=== PATIENT | female | born 1980 | race Caucasian/White ===

== ENCOUNTER 2020-04-27 01:07 | Emergency (ER) | payer SELFPAY ==
[~2020-04-27] VITALS: Ht 157.5 cm; Wt 68.0 kg
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
[2020-04-27] MEDS ORDERED: BACITRACIN ZINC TOPICAL OINT PACKET. TP ONE (01:39)
[2020-04-27] MEDS ORDERED: IV RINGERS SOLUTION,LACTATED 1,000 ML IV SCH (02:00)
[2020-04-27] MEDS ORDERED: MUPIROCIN 2% TOPICAL OINTMENT 22GM TUBE. TP ONE (02:00)
[2020-04-27] MEDS ORDERED: MORPHINE SULFATE 10 MG/ML SYRINGE. SQ ONE (02:00)
[2020-04-27] MEDS ORDERED: CONTRAST GIVEN. MC PRN (02:15)
[2020-04-27] MEDS ORDERED: IOHEXOL 300 MG/ML 75 ML VIAL. IV ONE (02:30)
[2020-04-27 03:33] LABS: BASO % 1 % (0-3); EOS # 0.2 x10^3/uL (0.0-0.7); EOS % 3 % (0-3); HEMATOCRIT 35.9 % (36.0-47.0); LYMPH # 2.1 x10^3/uL (1.0-4.8); LYMPH % 26 % (24-48); MEAN CORPUSCULAR HEMOGLOBIN 30 pg (25-35); MEAN CORPUSCULAR HGB CONC 33 g/dL (31-37); MEAN CORPUSCULAR VOLUME 91 fL (79-100); MONO # 0.7 x10^3/uL (0.0-1.1); MONO % 9 % (0-9); NEUT # 5.1 x10^3uL (1.8-7.7); NEUT % 63 % (31-73); PLATELET COUNT 289 x10^3/uL (140-400); RED BLOOD COUNT 3.96 x10^6/uL (3.50-5.40); RED CELL DISTRIBUTION WIDTH 13.7 % (11.5-14.5)
[2020-04-27 03:41] LABS: CALCIUM 9.3 mg/dL (8.5-10.1); CREATININE 0.8 mg/dL (0.6-1.0); GFR 80.7; POTASSIUM 3.7 mmol/L (3.5-5.1)
[2020-04-27 03:46] LABS: ALBUMIN 3.3 g/dL (3.4-5.0); DIRECT BILIRUBIN 0.1 mg/dL (0.0-0.2); MAGNESIUM 2.1 mg/dL (1.8-2.4); TOTAL BILIRUBIN 0.3 mg/dL (0.2-1.0); TOTAL PROTEIN 6.9 g/dL (6.4-8.2)
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
[2020-04-27 04:24] LABS: BILIRUBIN,URINE NEG (NEG); CLARITY,URINE CLOUDY; COLOR,URINE AMBER; GLUCOSE,URINE NEG (NEG)
[2020-04-27 04:25] LABS: BACTERIA,URINE 0 /HPF (0-FEW); NITRITE,URINE NEG (NEG); SQUAMOUS EPITHELIAL CELL,UR MOD /LPF; UROBILINOGEN,URINE 0.2 mg/dL (0.2 mg/dL); WBC,URINE 20-40 /HPF (0-4)
[2020-04-27 04:27] LABS: BARBITURATES NEG (NEG); BENZODIAZEPINES NEG (NEG); CANNABINOIDS POS (NEG); COCAINE NEG (NEG); METHADONE NEG (NEG); OPIATES POS (NEG); PHENCYCLIDINE NEG (NEG)
[2020-04-27 04:28] LABS: AMPHETAMINE/METHAMPHETAMINE POS (NEG)
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
[2020-04-27] MEDS ORDERED: CYCL-331 PO (05:01)
[2020-04-27] MEDS ORDERED: CEPH-264 PO (05:01)
[2020-04-27] MEDS ORDERED: HYDR-1179 PO (05:01)
[2020-04-27] MEDS: KETOROLAC 60 MG/2 ML VIAL. IM ONE ×2 (05:12→05:22)
[2020-04-27 05:24] VITALS: BP 141/89
[2020-04-27] MEDS ORDERED: CEPHALEXIN 250 MG CAPSULE PO ONE (05:30)
[2020-04-27] MEDS ORDERED: ORPHENADRINE CITRATE 60 MG/2 ML VIAL. IM ONE (05:30)
--- NOTE | 2020-04-27 07:45 | EKG ---
[address] [address] Test Date: 2020-04-27 Test Time: 01:47:19 Pat Name: SUE YADAV Department: Room: Gender: F [employer]: : 1980 Requested By: MT PORTER Order Number: [id number] Reading MD: Measurements Intervals [place] Rate: 76 P: 53 OR: 142 QRS: 36 QRSD: 82 T: 30 QT: 382 QTc: 434 Interpretive Statements SINUS RHYTHM NORMAL ECG RI6.02 No previous ECG available for comparison
== END 2020-04-27 05:39 | disposition home or self-care (01) ==
LOC: ER 01:07
DX: S00.93XA Contusion of unspecified part of head, initial encounter (principal); S50.02XA Contusion of left elbow, initial encounter; S70.12XA Contusion of left thigh, initial encounter; S70.11XA Contusion of right thigh, initial encounter; S90.32XA Contusion of left foot, initial encounter; V89.2XXA Person injured in unspecified motor-vehicle accident, traffic, initial encounter; Y93.89 Activity, other specified; Y92.89 Other specified places as the place of occurrence of the external cause; Y99.8 Other external cause status
CPT/HCPCS: 36415; 70450; 71046; 71250; 72125; 73060; 73080; 73630; 74176; 80048; 80076; 80307; 81001; 81025; 82150; 82550; 83690; 83735; 84484; 85025; 87086; 93005; 96372; 99285; J2270; J2360; J1885

== ENCOUNTER 2021-02-01 07:14 | Emergency (ER) | payer SELFPAY ==
[~2021-02-01] VITALS: Ht 157.5 cm; Wt 73.0 kg
[~2021-02-01 07:14] MED LIST: CEPH-264 PO; CYCL-331 PO; HYDR-1179 PO
--- NOTE | 2021-02-01 07:59 | PHYS DOC ---
Past History Past Medical History: No Pertinent History Additional Past Medical Histor: endocarditis, IV drug use Past Surgical History: No Surgical History Alcohol Use: Rarely General Adult EDM: Chief Complaint: MULTIPLE COMPLAINTS HPI: HPI: 40-year-old female presents with multiple complaints. The patient tells me "I was doing cotton's last night and it did not work out. I feel like I am going to ." The patient is an IV heroin user. She did not have her usual heroin so she did something called Cisneros which is some kind of heroin derivative. She has a headache, she is jittery, she feels like she has chest and abdominal pain. She is not vaccinated for COVID-19. Review of Systems: Review of Systems: Constitutional: Restless. Denies fever or chills Eyes: Denies change in visual acuity HENT: Denies nasal congestion or sore throat Respiratory: Denies cough or shortness of breath Cardiovascular: Chest pain GI: Denies abdominal pain, nausea, vomiting, bloody stools or diarrhea : Denies dysuria Musculoskeletal: Denies back pain or joint pain Integument: Denies rash Neurologic: Headache. Denies focal weakness or sensory changes Endocrine: Denies polyuria or polydipsia Lymphatic: Denies swollen glands Psychiatric: Anxiety Current Medications: Current Meds: Current Medications Medications (Trade) Dose Ordered Sig/Raj Start Time Stop Time Status Last Admin Dose Admin Diphenhydramine HCl (Benadryl) 50 mg 1X ONCE 02/01/21 08:00 02/01/21 08:01 UNV Ketorolac Tromethamine (Toradol 30mg Vial) 30 mg 1X ONCE 02/01/21 08:00 02/01/21 08:01 UNV Metoclopramide HCl (Reglan Vial) 10 mg 1X ONCE 02/01/21 08:00 02/01/21 08:01 UNV Sodium Chloride 1,000 ml @ 1,000 mls/hr 1X ONCE 02/01/21 08:00 02/01/21 08:59 UNV Allergies: Allergies: Allergies Coded Allergies Type Severity Reaction Last Updated Verified No Known Drug Allergies 04/27/20 No Physical Exam: PE: Constitutional: Well developed, well nourished, mild acute distress, non-toxic appearance. [] HENT: Normocephalic, atraumatic, bilateral external ears normal, oropharynx moist, no oral exudates, nose normal. [] Eyes: PERRLA, EOMI, conjunctiva normal, no discharge. [] Neck: Normal range of motion, no tenderness, supple, no stridor. [] Cardiovascular: Heart rate 111, regular rhythm, no murmur [] Lungs & Thorax: Bilateral breath sounds clear to auscultation [] Abdomen: Bowel sounds normal, soft, no tenderness, no masses, no pulsatile masses. [] Skin: Warm, dry, no erythema, no rash. [] Back: No tenderness, no CVA tenderness. [] Extremities: No tenderness, no cyanosis, no clubbing, ROM intact, no edema. [] Neurologic: Alert and oriented X 3, normal motor function, normal sensory function, no focal deficits noted. [] Psychologic: Affect restless, judgement questionable, mood anxious. [] Current Patient Data: Vital Signs: Vital Signs Date Time Temp Pulse Resp B/P (MAP) Pulse Ox O2 Delivery O2 Flow Rate FiO2 02/01/21 07:33 98.1 78 20 88/49 98 Room Air EKG: EKG: Sinus tachycardia, rate 111, normal axis, no ST elevation or depression. [] Radiology/Procedures: Radiology/Procedures: [] Impressions: EXAMINATION: XR CHEST 1V CLINICAL HISTORY: Chest pain EXAM DATE/TIME: 02/01/2021 8:00 AM COMPARISON: 04/27/2020 FINDINGS: Lines, Tubes, and Devices: None. Cardiomediastinal Silhouette: Within normal limits. Lungs and Pleura: No evidence of focal airspace consolidation or pleural effusion. Pulmonary vasculature unremarkable. Bones and Soft Tissues: No acute osseous abnormality. Probable implantable contraceptive device in the subcutaneous soft tissues of the medial left arm. IMPRESSION: No evidence of acute cardiopulmonary abnormality or significant interval change. Electronically signed by: Ryan Killian DO (02/01/2021 8:12 AM) [id number] DICTATED AND SIGNED BY: RYAN KILLIAN DO DATE: 02/01/2110 CC: CORNELIO HERRERA DO; PCP,NO ~MTH0 0 Heart Score: C/O Chest Pain: Yes HEART Score for Chest Pain: HEART Score for Chest Pain Response (Comments) Value History Slighlty/Non-Suspicious 0 ECG Normal 0 Age < 45 0 Risk Factors 1 or 2 Risk Factors 1 Troponin < Normal Limit 0 Total 1 Risk Factors: Risk Factors: DM, Current or recent (<one month) smoker, HTN, HLP, family history of CAD, obesity. Risk Scores: Score 0 - 3: 2.5% MACE over next 6 weeks - Discharge Home Score 4 - 6: 20.3% MACE over next 6 weeks - Admit for Clinical Observation Score 7 - 10: 72.7% MACE over next 6 weeks - Early Invasive Strategies Course & Med Decision Making: Course & Med Decision Making Pertinent Labs and Imaging studies reviewed. (See chart for details) The patient's labs significant for an elevated white count with a left shift. She has elevated liver enzymes which is new from her previous labs. Her urinalysis is negative for infection. I do not see any obvious signs of infection. I have ordered a lipase and a CT of the abdomen and pelvis. The patient's urine drug screen is positive for opiates, methamphetamines, and marijuana. CT scan showed possible cholangitis. I have given the patient Zosyn by IV. I spoke with the hospitalist, Dr. Mcgill and he has accepted the patient for transfer and admission to [facility]. He will consult surgery as appropriate. She will go by ambulance. [] Dragon Disclaimer: Dragon Disclaimer: This electronic medical record was generated, in whole or in part, using a voice recognition dictation system. Departure Departure: Impression: Primary Impression: Cholangitis Disposition: [facility] Admitting Physician: Sherie Mcgill Condition: STABLE Referrals: PCP,NO (PCP) CORNELIO HERRERA DO Feb 01, 2021 07:59
[2021-02-01] MEDS ORDERED: METOCLOPRAMIDE HCL 10 MG/2 ML VIAL. IVP ONE (08:00)
[2021-02-01] MEDS ORDERED: IV NORMAL SALINE 1,000ML 1,000 ML IV ONE (08:00)
[2021-02-01] MEDS ORDERED: KETOROLAC 30 MG/ML VIAL. IVP ONE (08:00)
[2021-02-01] MEDS ORDERED: diphenhydrAMINE 50 MG/ML VIAL IVP ONE (08:00)
--- NOTE | 2021-02-01 08:15 | RAD ---
EXAMINATION: XR CHEST 1V CLINICAL HISTORY: Chest pain EXAM DATE/TIME: 02/01/2021 8:00 AM COMPARISON: 04/27/2020 FINDINGS: Lines, Tubes, and Devices: None. Cardiomediastinal Silhouette: Within normal limits. Lungs and Pleura: No evidence of focal airspace consolidation or pleural effusion. Pulmonary vasculat ure unremarkable. Bones and Soft Tissues: No acute osseous abnormality. Probable implantable contraceptive device in th e subcutaneous soft tissues of the medial left arm. IMPRESSION: No evidence of acute cardiopulmonary abnormality or significant interval change. Electronically signed by: Ryan Arguello DO (02/01/2021 8:12 AM) [id number]
[2021-02-01 08:33] LABS: BARBITURATES NEG (NEG); BENZODIAZEPINES NEG (NEG); CANNABINOIDS POS (NEG); COCAINE NEG (NEG); METHADONE NEG (NEG); OPIATES POS (NEG); PHENCYCLIDINE NEG (NEG)
[2021-02-01 08:33] LABS: BASO % 0 % (0-3); EOS % 0 % (0-3); HEMATOCRIT 41.1 % (36.0-47.0); LYMPH # 0.1 x10^3/uL (1.0-4.8); LYMPH % 1 % (24-48); MEAN CORPUSCULAR HEMOGLOBIN 30 pg (25-35); MEAN CORPUSCULAR HGB CONC 34 g/dL (31-37); MEAN CORPUSCULAR VOLUME 88 fL (79-100); MONO # 0.1 x10^3/uL (0.0-1.1); MONO % 0 % (0-9); NEUT % 99 % (31-73); PLATELET COUNT 193 x10^3/uL (140-400); RED BLOOD COUNT 4.67 x10^6/uL (3.50-5.40); RED CELL DISTRIBUTION WIDTH 13.1 % (11.5-14.5); WHITE BLOOD COUNT 19.2 x10^3/uL (4.0-11.0)
[2021-02-01 08:36] LABS: CREATININE 0.9 mg/dL (0.6-1.0); GFR 70.1; POTASSIUM 3.2 mmol/L (3.5-5.1)
[2021-02-01 08:38] LABS: AMPHETAMINE/METHAMPHETAMINE POS (NEG)
[2021-02-01 08:52] LABS: BACTERIA,URINE 0 /HPF (0-FEW); BILIRUBIN,URINE SMALL (NEG); CLARITY,URINE CLEAR; COLOR,URINE AMBER; GLUCOSE,URINE NEG (NEG); NITRITE,URINE NEG (NEG); RBC,URINE RARE /HPF (0-2); SQUAMOUS EPITHELIAL CELL,UR MOD /LPF
[2021-02-01 08:54] LABS: ALBUMIN 3.4 g/dL (3.4-5.0); ALBUMIN/GLOBULIN RATIO 0.9 (1.0-1.7); TOTAL BILIRUBIN 2.1 mg/dL (0.2-1.0); TOTAL PROTEIN 7.3 g/dL (6.4-8.2)
[2021-02-01] MEDS ORDERED: IOHEXOL 300 MG/ML 75 ML VIAL. IV ONE (09:30)
[2021-02-01 09:33] LABS: % LYMPHS 1 % (24-48); % SEGS 99 % (35-66); PLT ESTIMATE ADEQUATE (ADEQUATE)
[2021-02-01] MEDS ORDERED: CONTRAST GIVEN. MC PRN (09:45)
--- NOTE | 2021-02-01 10:34 | RAD ---
EXAMINATION: CT ABDOMEN+PELVIS W CLINICAL HISTORY: Elevated liver enzymes, epigastric pain TECHNIQUE: CT of the abdomen and pelvis was performed using standard technique, scanning from just ab ove the dome of the diaphragm to the symphysis pubis following administration of intravenous contrast . CT Dose Reduction Employed: One or more of the following individualized dose reduction techniques wer e utilized for this examination: 1. Automated exposure control 2. Adjustment of the mA and/or kV ac cording to patient size 3. Use of iterative reconstruction technique. COMPARISON: 05/07/2020 FINDINGS: Mild bibasilar dependent subsegmental atelectasis. No visualized cholelithiasis or significant gallbladder wall thickening, however, there is mild peric holecystic fluid is present and there is dilation of the common bile duct measuring up to 7 mm in terrell meter, previously 9 mm. Mild central intrahepatic biliary ductal dilation. Mild patchy hypoenhancemen t in the left hepatic lobe along the anterior falciform ligament, possibly related to focal steatosis . Pancreas, spleen, adrenal glands, and kidneys unremarkable. Minimally filled urinary bladder suboptimally evaluated. Diffusely prominent bladder wall, nonspecifi c and could be related to underdistention. Retroflexed uterus. Minimal pelvic free fluid, likely phys iologic. No bowel dilation or definite wall thickening. Appendix within normal limits. No abdominal aortic or iliac artery aneurysm. No evidence of acute osseous abnormality. IMPRESSION: Mild pericholecystic fluid and biliary ductal dilation as described, nonspecific but can be related t o cholecystitis with noncalcified stones or cholangitis. Correlate clinically and consider right uppe r quadrant ultrasound and/or MRCP for further evaluation as indicated. Electronically signed by: Ryan Arguello DO (02/01/2021 10:31 AM) [id number]
--- NOTE | 2021-02-01 11:23 | RAD ---
EXAMINATION: RIGHT UPPER QUADRANT ULTRASOUND CLINICAL HISTORY: Abdominal pain with pericholecystic fluid and biliary dilation on CT TECHNIQUE: Sonography of the right upper quadrant was performed. COMPARISON: CT abdomen/pelvis same day FINDINGS: Pancreas: Poorly visualized secondary to overlying bowel gas. Liver: - Echotexture: Normal, homogeneous. - Echogenicity: Normal - Surface contour: Smooth - Lesions: None. Biliary: No intrahepatic biliary duct dilation visualized on available images. - CBD: 6 mm, upper limits of normal. - Gallbladder: Normal caliber - Contents: Mildly echogenic debris. - Wall: Thickened measuring up to 5 mm. - Other: Mild pericholecystic fluid. Right Kidney: Measures 11.6 cm in length. No evidence of hydronephrosis on limited evaluation. Ascites: None. Aorta/IVC: Partially visualized aorta and IVC unremarkable. IMPRESSION: Findings compatible with acute cholecystitis as described. Electronically signed by: Ryan Arguello DO (02/01/2021 11:21 AM) [id number]
[2021-02-01] MEDS ORDERED: PIPERACILLIN/TAZOBACTAM 3.375 GM VIAL IV ONE (11:25)
[2021-02-01] MEDS ORDERED: IV NORMAL SALINE 50ML 50 ML ONE (11:25)
[2021-02-01] MEDS ORDERED: PIPERACILLIN/TAZOBACTAM 3.375 GM in IV NORMAL SALINE 50ML 50 ML IV ONE (11:30)
--- NOTE | 2021-02-01 11:32 | EKG ---
[address] [address] Test Date: 2021-02-01 Test Time: 07:35:33 Pat Name: SUE YADAV Department: Room: Gender: F [employer]: KRISTY : 1980 Requested By: CORNELIO HERRERA Order Number: [id number] Reading MD: Measurements Intervals [place] Rate: 111 P: 62 [place]: 142 QRS: 23 QRSD: 86 T: 66 QT: 316 QTc: 433 Interpretive Statements SINUS TACHYCARDIA OTHERWISE NORMAL ECG RI6.02 No previous ECG available for comparison
[2021-02-01 13:13] VITALS: BP 94/56
== END 2021-02-01 13:18 | disposition short-term general hospital (02) ==
LOC: ER 07:14
DX: K83.09 Other cholangitis (principal)
CPT/HCPCS: 36415; 71045; 74177; 76705; 80053; 80307; 81001; 83690; 84484; 85007; 85025; 93005; 96361; 96365; 96375; 99285; J1200; J1885; J2060; J2543; J2765; J7030; Q9967

== ENCOUNTER 2021-08-21 12:37 | Emergency (ER) | payer SELFPAY ==
[~2021-08-21] VITALS: Ht 157.5 cm; Wt 72.6 kg
[~2021-08-21 12:37] MED LIST changes: -CYCL-331 PO; +CYCL10TA19 PO
[2021-08-21 12:40] VITALS: BP 111/79
[2021-08-21] MEDS ORDERED: ONDANSETRON PF 4 MG/2 ML VIAL. IVP ONE (12:45)
[2021-08-21] MEDS ORDERED: ONDANSETRON ODT 4 MG TAB.RAPDIS ONE (12:54)
[2021-08-21] MEDS: ONDANSETRON ODT 4 MG TAB.RAPDIS PO ONE (12:57)
[2021-08-21] MEDS: IV NORMAL SALINE 1,000ML 1,000 ML IV ONE (13:11)
[2021-08-21 13:22] LABS: BASO % 0 % (0-3); EOS % 1 % (0-3); HEMATOCRIT 42.1 % (36.0-47.0); HEMOGLOBIN 14.2 g/dL (12.0-15.5); LYMPH # 1.6 x10^3/uL (1.0-4.8); LYMPH % 18 % (24-48); MEAN CORPUSCULAR HEMOGLOBIN 30 pg (25-35); MEAN CORPUSCULAR HGB CONC 34 g/dL (31-37); MEAN CORPUSCULAR VOLUME 90 fL (79-100); MONO # 0.5 x10^3/uL (0.0-1.1); MONO % 6 % (0-9); NEUT # 6.6 x10^3uL (1.8-7.7); NEUT % 75 % (31-73); PLATELET COUNT 320 x10^3/uL (140-400); RED BLOOD COUNT 4.69 x10^6/uL (3.50-5.40); RED CELL DISTRIBUTION WIDTH 14.4 % (11.5-14.5); WHITE BLOOD COUNT 8.8 x10^3/uL (4.0-11.0)
[2021-08-21] MEDS: KETOROLAC 15 MG/ML VIAL. IVP ONE (13:22)
[2021-08-21 13:29] LABS: CALCIUM 9.4 mg/dL (8.5-10.1); CREATININE 0.8 mg/dL (0.6-1.0); GFR 80.3; POTASSIUM 3.5 mmol/L (3.5-5.1)
--- NOTE | 2021-08-21 13:29 | PHYS DOC ---
Past History Past Medical History: Heart Disease Additional Past Medical Histor: endocarditis, IV drug use (AQUILES DIAS) Past Surgical History: (AQUILES DIAS) Additional Smoking Information: 1/2 PACK/DAY Alcohol Use: None Drug Use: Heroin, Marijuana (AQUILES DIAS) General Adult EDM: Chief Complaint: OVERDOSE HPI: HPI: Patient is a 40 year old female with known substance use disorder who presents via EMS status post heroin overdose at home. Per EMS, patient was found outside with decreased level consciousness. Patient was administered 2 Narcan nasal. On arrival to the department, she is alert and oriented. Patient does not recall the events leading to her going outside after heroin use. Her complaints include headache, abdominal pain, nausea and one episode of emesis. She has no other complaints at this time. (AQUILES DIAS) Review of Systems: Review of Systems: Constitutional: Denies fever, chills or generalized weakness Eyes: Denies change in visual acuity, visual field deficits or discharge HENT: Denies ear pain, nasal congestion or sore throat Respiratory: Denies cough or shortness of breath Cardiovascular: Denies chest pain, palpitations or edema GI: Denies bloody stools or diarrhea. Reports abdominal pain, nausea, vomiting. : Denies dysuria or hematuria Musculoskeletal: Denies back pain or joint pain Integument: Denies rash or other skin lesion Neurologic: Denies focal weakness or sensory changes. Reports headache. (AQUILES DIAS) Current Medications: Current Meds: Current Medications Medications (Trade) Dose Ordered Sig/Raj Start Time Stop Time Status Last Admin Dose Admin Ondansetron HCl (Zofran Odt) 4 mg STK-MED ONCE 08/21/21 12:54 08/21/21 12:54 DC Ondansetron HCl (Zofran) 4 mg 1X ONCE 08/21/21 12:45 08/21/21 12:48 DC Sodium Chloride 1,000 ml @ 1,000 mls/hr 1X ONCE 08/21/21 12:45 08/21/21 13:44 08/21/21 13:11 1,000 MLS/HR (AQUILES DIAS) Allergies: Allergies: Allergies Coded Allergies Type Severity Reaction Last Updated Verified No Known Drug Allergies 04/27/20 No (AQUILES DIAS) Physical Exam: PE: Constitutional: Well developed, well nourished, no acute distress, non-toxic appearance. HENT: Normocephalic, atraumatic, bilateral external ears normal, nose normal. Eyes: PERRLA, EOMI, conjunctiva normal, no discharge. Neck: Normal range of motion, no stridor. Cardiovascular: Heart rate regular rhythm, no obvious murmur. Lungs & Thorax: Bilateral breath sounds clear to auscultation. Abdomen: Bowel sounds normal, soft, no tenderness, no masses, no pulsatile masses. Skin: Warm, dry, no erythema, no rash. Extremities: No tenderness, no cyanosis, no clubbing, ROM intact, no edema. Neurologic: Alert and oriented x4, motor and sensory function grossly intact, no focal deficits noted. (AQUILES DIAS) Current Patient Data: Labs: Laboratory Tests Test 08/21/21 13:07 08/21/21 14:15 White Blood Count 8.8 x10^3/uL (4.0-11.0) Red Blood Count 4.69 x10^6/uL (3.50-5.40) Hemoglobin 14.2 g/dL (12.0-15.5) Hematocrit 42.1 % (36.0-47.0) Mean Corpuscular Volume 90 fL (79-100) Mean Corpuscular Hemoglobin 30 pg (25-35) Mean Corpuscular Hemoglobin Concent 34 g/dL (31-37) Red Cell Distribution Width 14.4 % (11.5-14.5) Platelet Count 320 x10^3/uL (140-400) Neutrophils (%) (Auto) 75 % (31-73) Lymphocytes (%) (Auto) 18 % (24-48) Monocytes (%) (Auto) 6 % (0-9) Eosinophils (%) (Auto) 1 % (0-3) Basophils (%) (Auto) 0 % (0-3) Neutrophils # (Auto) 6.6 x10^3uL (1.8-7.7) Lymphocytes # (Auto) 1.6 x10^3/uL (1.0-4.8) Monocytes # (Auto) 0.5 x10^3/uL (0.0-1.1) Eosinophils # (Auto) 0.0 x10^3/uL (0.0-0.7) Basophils # (Auto) 0.0 x10^3/uL (0.0-0.2) Sodium Level 141 mmol/L (136-145) Potassium Level 3.5 mmol/L (3.5-5.1) Chloride Level 101 mmol/L (98-107) Carbon Dioxide Level 26 mmol/L (21-32) Anion Gap 14 (6-14) Blood Urea Nitrogen 8 mg/dL (7-20) Creatinine 0.8 mg/dL (0.6-1.0) Estimated GFR (Cockcroft-Gault) 80.3 BUN/Creatinine Ratio 10 (6-20) Glucose Level 114 mg/dL (70-99) Calcium Level 9.4 mg/dL (8.5-10.1) Total Bilirubin 0.3 mg/dL (0.2-1.0) Aspartate Amino Transf (AST/SGOT) 21 U/L (15-37) Alanine Aminotransferase (ALT/SGPT) 39 U/L (14-59) Alkaline Phosphatase 105 U/L (46-116) Total Protein 8.4 g/dL (6.4-8.2) Albumin 4.7 g/dL (3.4-5.0) Albumin/Globulin Ratio 1.3 (1.0-1.7) Urine Collection Type Unknown Urine Color Yellow Urine Clarity Hazy Urine pH 6.0 Urine Specific [place] >=1.030 Urine Protein 30 mg/dl (NEG-TRACE) Urine Glucose (UA) Neg mg/dL (NEG) Urine Ketones (Stick) Neg mg/dL (NEG) Urine Blood Trace (NEG) Urine Nitrite Pos (NEG) Urine Bilirubin Neg (NEG) Urine Urobilinogen Dipstick 0.2 mg/dL (0.2 mg/dL) Urine Leukocyte Esterase Neg (NEG) Urine RBC Occ /HPF (0-2) Urine WBC 5-10 /HPF (0-4) Urine Squamous Epithelial Cells Occ /LPF Urine Bacteria Many /HPF (0-FEW) Urine Opiates Screen Neg (NEG) Urine Methadone Screen Neg (NEG) Urine Barbiturates Neg (NEG) Urine Phencyclidine Screen Neg (NEG) Urine Amphetamine/Methamphetamine Pos (NEG) Urine Benzodiazepines Screen Neg (NEG) Urine Cocaine Screen Neg (NEG) Urine Cannabinoids Screen Pos (NEG) Urine Ethyl Alcohol Neg (NEG) Vital Signs: Vital Signs Date Time Temp Pulse Resp B/P (MAP) Pulse Ox O2 Delivery O2 Flow Rate FiO2 08/21/21 12:40 98.2 94 20 111/79 (90) 100 Room Air (AQUILES DIAS) Heart Score: C/O Chest Pain: No (AQUILES DIAS) Course & Med Decision Making: Course & Med Decision Making Pertinent Labs and Imaging studies reviewed. (See chart for details) 40-year-old female presents via EMS after being found outside. Patient has confirmed use of heroin this morning. Work-up today will include labs, urinalysis, UDS. Patient provided with Zofran for nausea, ketorolac for headache and IV fluids. UA shows signs of infection. Patient will be treated with p.o. Keflex. Patient made aware of all lab findings and encouraged to stop drug use. She was provided with return precautions. Patient understands and is agreeable to discharge plan. (AQUILES DIAS) Dragon Disclaimer: Dragon Disclaimer: This electronic medical record was generated, in whole or in part, using a voice recognition dictation system. (AQUILES DIAS) Attending Co-Sign The patient was seen and interviewed as well as examined at the bedside. The chart was reviewed. The case was discussed. Agree with the plan of care. (CORNELIO HERRERA DO) Departure Departure: Impression: Primary Impression: Heroin overdose Qualified Codes: T40.1X1A - Poisoning by heroin, accidental (unintentional), initial encounter Additional Impressions: Substance use disorder History of endocarditis in adulthood IV drug user UTI (urinary tract infection) Qualified Codes: N30.00 - Acute cystitis without hematuria Disposition: HOME / SELF CARE / HOMELESS Condition: IMPROVED Referrals: PCP,NO (PCP) Patient Instructions: Substance Abuse-Brief, Urinary Tract Infection, [id number] Additional Instructions: EMERGENCY DEPARTMENT GENERAL DISCHARGE INSTRUCTIONS Thank you for coming to [facility] (ED) today and trusting us with you care. We trust that you had a positive experience in our Emergency Department. If you wish to speak to the department management, you may call the director at [phone]. YOUR FOLLOW UP INSTRUCTIONS ARE FOLLOWS: 1. Follow up with your primary care doctor. If you do not have a primary doctor, please ask for a resource list of physicians or clinics that may be able to assist you with follow up care. 2. The emergency provider has interpreted your imaging studies, if any were ordered. The radiology instructional specialist also reviewed them. If there is a change in the findings, you will be notified in 48 hours when at all possible. 3. If a lab test or culture has been done, your results will be reviewed and you will be notified if you need a change in treatment. 4. Follow instructions verbalized to you and refer to the printouts if needed. ADDITIONAL INSTRUCTIONS AND INFORMATION: 1. Your care today has been supervised by a physician who is specially trained in emergency care. Many problems require more than one evaluation for a complete diagnosis and treatment. We recommend that you schedule your follow up appointment as recommended to ensure complete treatment of you illness or injury. If you are unable to obtain follow up care and continue to have a problem, or if your condition worsens, we recommend that you return to the ED. 2. We are not able to safely determine your condition over the phone nor are we able to give sound medical advice over the phone. For these safety reasons, if you call for medical advice we will ask you to come to the ED for further evaluation. 3. If you have any questions regarding these discharge instructions please call the ED at [phone]. SAFETY INFORMATION: In the interest of safety, wellness, and injury prevention; we encourage you to wear your seat belt, if you smoke; quite smoking, and we encourage family to use a protective helmet for bicycling and other sporting events that present an increased risk for head injury. IF YOUR SYMPTOMS WORSEN OR NEW SYMPTOMS DEVELOP, OR YOU HAVE CONCERNS ABOUT YOUR CONDITION; OR IF YOUR CONDITION WORSENS WHILE YOU ARE WAITING FOR YOUR FOLLOW UP APPOINTMENT; EITHER CONTACT YOUR PRIMARY CARE DOCTOR, THE PHYSICIAN WHOSE NAME AND NUMBER YOU WERE GIVEN, OR RETURN TO THE ED IMMEDIATELY. Scripts Cephalexin (KEFLEX) 500 Mg Capsule 1 CAP PO BID for UTI, #14 CAP Prov: AQUILES DIAS 08/21/21 AQUILES DIAS Aug 21, 2021 13:29 CORNELIO HERRERA DO Aug 22, 2021 10:15
[2021-08-21 13:35] LABS: ALBUMIN 4.7 g/dL (3.4-5.0); ALBUMIN/GLOBULIN RATIO 1.3 (1.0-1.7); TOTAL BILIRUBIN 0.3 mg/dL (0.2-1.0); TOTAL PROTEIN 8.4 g/dL (6.4-8.2)
[2021-08-21 14:51] LABS: BACTERIA,URINE MANY /HPF (0-FEW); BILIRUBIN,URINE NEG (NEG); CLARITY,URINE HAZY; COLOR,URINE YELLOW; GLUCOSE,URINE NEG (NEG); NITRITE,URINE POS (NEG); RBC,URINE OCC /HPF (0-2); SQUAMOUS EPITHELIAL CELL,UR OCC /LPF; UROBILINOGEN,URINE 0.2 mg/dL (0.2 mg/dL)
[2021-08-21 14:54] LABS: BARBITURATES NEG (NEG); BENZODIAZEPINES NEG (NEG); CANNABINOIDS POS (NEG); COCAINE NEG (NEG); METHADONE NEG (NEG); OPIATES NEG (NEG); PHENCYCLIDINE NEG (NEG)
[2021-08-21 14:58] LABS: AMPHETAMINE/METHAMPHETAMINE POS (NEG)
[2021-08-21] MEDS ORDERED: CEPH500C PO (15:09)
== END 2021-08-21 15:12 | disposition home or self-care (01) ==
LOC: ER 12:37
DX: T40.1X1A Poisoning by heroin, accidental (unintentional), initial encounter (principal); N30.00 Acute cystitis without hematuria; F17.200 Nicotine dependence, unspecified, uncomplicated; F19.90 Other psychoactive substance use, unspecified, uncomplicated; Y92.89 Other specified places as the place of occurrence of the external cause
CPT/HCPCS: 36415; 80053; 80307; 81001; 85025; 87086; 96361; 96374; 99283; J1885; J7030; Q0162; 87077; 87186